=== PATIENT | female | born 2005 | race Caucasian/White ===

== ENCOUNTER 2025-01-24 11:15 | Emergency (ER) | payer OTHER ==
[~2025-01-24] VITALS: Ht 152.4 cm; Wt 70.5 kg
[2025-01-24 11:41] VITALS: TEMP 98.3
[2025-01-24] MEDS: METHOCARBAMOL 500 MG TABLET PO ONE (13:19)
[2025-01-24] MEDS: IBUPROFEN 600 MG TABLET PO ONE (13:19)
[2025-01-24] MEDS ORDERED: METH-659 PO (13:57)
[2025-01-24] MEDS ORDERED: IBUP-1492 PO (13:57)
[2025-01-24 14:01] VITALS: BP 119/74; PULSE 80; RESP 16; O2SAT 98
== END 2025-01-24 14:03 | disposition home or self-care (01) ==
LOC: EMS 11:37
DX: S93.402A Sprain of unspecified ligament of left ankle, initial encounter (principal); S16.1XXA Strain of muscle, fascia and tendon at neck level, initial encounter; S46.812A Strain of other muscles, fascia and tendons at shoulder and upper arm level, left arm, initial encounter; X58.XXXA Exposure to other specified factors, initial encounter; Y93.89 Activity, other specified; Y92.89 Other specified places as the place of occurrence of the external cause; Y99.8 Other external cause status
CPT/HCPCS: 99284; 73610-TC; 73620-TC; Z7502; Z7610